=== PATIENT | male | born 1995 | race African-American/Black ===

== ENCOUNTER 2020-07-20 15:06 | Emergency (ER) | payer OTHER ==
[~2020-07-20] VITALS: Ht 165.1 cm; Wt 68.2 kg
[2020-07-20] MEDS ORDERED: ACETAMINOPHEN 325 MG TABLET PO ONE (16:15)
[2020-07-20 16:43] VITALS: BP 133/69
== END 2020-07-20 16:43 | disposition home or self-care (01) ==
LOC: EMS 15:14
DX: S46.911A Strain of unspecified muscle, fascia and tendon at shoulder and upper arm level, right arm, initial encounter (principal); W18.39XA Other fall on same level, initial encounter; Y93.66 Activity, soccer; Y92.89 Other specified places as the place of occurrence of the external cause; Y99.8 Other external cause status
CPT/HCPCS: 29105; 99283

== ENCOUNTER 2022-07-24 22:24 | Emergency (ER) | payer OTHER ==
[~2022-07-24] VITALS: Ht 165.1 cm; Wt 77.3 kg
[2022-07-25] MEDS ORDERED: AMOX TR/POT CLAV 875 MG/125 MG TABLET PO ONE (00:30)
[2022-07-25] MEDS ORDERED: PERTUSS(ACELL),DIPH,TET VAC/PF 0.5 ML SYRINGE IM. ONE (00:30)
[2022-07-25] MEDS ORDERED: IBUPROFEN 600 MG TABLET PO ONE (00:30)
[2022-07-25 00:45] VITALS: BP 134/64
== END 2022-07-25 00:58 | disposition home or self-care (01) ==
LOC: EMS 22:24
DX: S61.451A Open bite of right hand, initial encounter (principal); W54.0XXA Bitten by dog, initial encounter; Y93.89 Activity, other specified; Y92.89 Other specified places as the place of occurrence of the external cause; Y99.8 Other external cause status
CPT/HCPCS: 90471; 90715; 99283